=== PATIENT | female | born 1960 | race Caucasian/White ===

== ENCOUNTER 2017-08-05 11:59 | Emergency (ER) | payer MEDICAID ==
[~2017-08-05] VITALS: Ht 165.1 cm; Wt 68.0 kg
[~2017-08-05 11:59] MED LIST: ACYC-114 PO; ALPR0.25 PO; ASPI-515 PO; ATOR10TA9 PO; ATOR40TA78 PO; CEFD300C37 PO; CEPH-368 PO; CIPR500T87 PO; CITA40TA12 PO; DICY10CA53 PO; GABA400C PO; GABA600T2 PO; HYDR-3240 PO; HYDR-882 PO; INSU100V SC; INSU100V8 SQ; LEVO500T47 PO; LEVO88TA4 PO; LISI5TAB7 PO; METR500T PO; ONDA4TAB12 PO; PHEN100T90 PO; PROM25SU34 PO; PROM25TA10 PO; TRAZ100T15 PO
[2017-08-05] MEDS ORDERED: DIAZEPAM 5 MG/ML, 2ML IV ONE (13:00)
[2017-08-05 13:09] LABS: HEMATOCRIT 43.3 % (34.6-47.8); HEMOGLOBIN 14.6 g/dL (11.7-16.4); WHITE BLOOD COUNT 6.6 x10^3/uL (3.4-10)
[2017-08-05 13:19] LABS: BLOOD UREA NITROGEN 8 mg/dL (7-18)
[2017-08-05 13:31] LABS: PATH.CAST-FLAG NOT PRESENT; SPERM-FLAG NOT PRESENT; SRC-FLAG NOT PRESENT; XTAL-FLAG NOT PRESENT; YLC-FLAG NOT PRESENT
[2017-08-05 14:31] VITALS: BP 140/80
== END 2017-08-05 14:31 | disposition home or self-care (01) ==
LOC: ED 14:07
DX: F41.1 Generalized anxiety disorder (principal); E87.1 Hypo-osmolality and hyponatremia; B00.89 Other herpesviral infection; E11.43 Type 2 diabetes mellitus with diabetic autonomic (poly)neuropathy; E78.5 Hyperlipidemia, unspecified; I10 Essential (primary) hypertension; K31.84 Gastroparesis
CPT/HCPCS: 36415; 80048; 81001; 82040; 84443; 85025; 93005; 99285

== ENCOUNTER 2020-06-07 21:39 | Emergency (ER) | payer MEDICARE, MEDICAID ==
[~2020-06-07] VITALS: Ht 167.6 cm; Wt 84.0 kg
[~2020-06-07 21:39] MED LIST changes: -GABA600T2 PO; +GABA600T7 PO; +HYDR-3653 PO; -HYDR-882 PO; +ONDA-89 PO; -ONDA4TAB12 PO; +TRAZ-175 PO; -TRAZ100T15 PO
--- NOTE | 2020-06-07 21:55 | NUR ---
PATIENT STATED THAT SHE HASN'T BEEN FEELING GOOD AT HOME SO SHE WAS NOT TAKING HER OPIATES AT HOME, PATIENT IS UNAWARE OF THE OPIATES NAME. PATIENT STATED THAT SHE HAS A PRESCRIPTION FOR OPIATES R/T DM/NEUROPATHY PAIN.
[2020-06-07] MEDS ORDERED: ONDANSETRON ODT 4 MG PO ONE (22:30)
[2020-06-07 22:32] LABS: BASOPHILS # (AUTO) 0.05 x10^3/uL (0-0.1); BASOPHILS % (AUTO) 1 % (0-1); EOSINOPHILS # (AUTO) 0.07 x10^3/uL (0-0.4); EOSINOPHILS % (AUTO) 1 % (1-7); LYMPHOCYTES # (AUTO) 1.35 x10^3/uL (1-3.4); LYMPHOCYTES % (AUTO) 21 % (22-44); MD NO; MEAN CORPUSCULAR HEMOGLOBIN 29.9 pg (27.0-34.8); MEAN CORPUSCULAR VOLUME 90.4 fL (80-100); MONOCYTES # (AUTO) 0.51 x10^3/uL (0.2-0.8); MONOCYTES % (AUTO) 8 % (2-9); NEUTROPHILS # (AUTO) 4.51 x10^3/uL (1.8-6.8); NEUTROPHILS % (AUTO) 70 % (42-75); PLATELET COUNT 380 x10^3/uL (130-400); RED BLOOD COUNT 5.26 x10^6/uL (3.82-5.3)
[2020-06-07 22:57] LABS: ALBUMIN 3.8 g/dL (3.4-5.0); CALCIUM 9.9 mg/dL (8.5-10.1)
[2020-06-07 23:15] LABS: ALANINE AMINOTRANSFERASE 34 U/L (12-78); ALKALINE PHOSPHATASE 66 U/L (45-117); ANION GAP 10 mmol/L (5-15); BILIRUBIN,TOTAL 0.7 mg/dL (0.2-1.0); CHLORIDE 100 mmol/L (98-107); CREATININE 0.92 mg/dL (0.55-1.02); TOTAL PROTEIN 8.1 g/dL (6.4-8.2)
[2020-06-07] MEDS ORDERED: ONDANSETRON 2MG/ML, 2ML ONE (23:53)
--- NOTE | 2020-06-08 00:01 | NUR ---
PT STATED SHE HAS AN ALLERGY TO ZOFRAN, MEDICATION WASTED
--- NOTE | 2020-06-08 00:12 | NUR ---
PT RESTING IN BED, PT SAID HER STOMACH HURT, PROVIDER NOTIFIED. PT ON MONITOR AND RN WILL CONTINUE TO MONITOR PT VSS
[2020-06-08] MEDS ORDERED: LORazepam 2 MG/ML, 1ML ONE (00:20)
[2020-06-08] MEDS ORDERED: LORazepam 2 MG/ML, 1ML IVPush ONE (00:30)
[2020-06-08 01:11] LABS: MICROSCOPIC INDICATED
[2020-06-08 01:13] LABS: AMPHETAMINE SCREEN, URINE Negative (Negative); BARBITURATE SCREEN, URINE Negative (Negative); BENZODIAZEPINE SCREEN, URINE Negative (Negative); CANNABINOID SCREEN, URINE Positive (Negative); COCAINE SCREEN, URINE Negative (Negative); METHADONE SCREEN, URINE Negative (Negative); OPIATE SCREEN, URINE Positive (Negative)
[2020-06-08] MEDS ORDERED: CEFTRIAXONE PMX 1GM/50ML 50 ML IV ONE (01:30)
[2020-06-08] MEDS ORDERED: CEFTRIAXONE PMX 1GM/50ML 50 ML ONE (01:37)
[2020-06-08 02:28] VITALS: BP 134/75
[2020-06-08] MEDS ORDERED: OMNIPAQUE 350 MG/ML, 100ML BOTTLE ONE (05:24)
== END 2020-06-08 02:31 | disposition home or self-care (01) ==
LOC: ED 22:09
DX: R10.84 Generalized abdominal pain (principal); F41.1 Generalized anxiety disorder; N30.01 Acute cystitis with hematuria; R73.9 Hyperglycemia, unspecified; E11.9 Type 2 diabetes mellitus without complications; R11.2 Nausea with vomiting, unspecified
CPT/HCPCS: 36415; 74177; 80053; 80307; 81001; 83690; 85025; 87086; 96365; 96375; 99285; J0696; J2060; Q9967; Q0162